=== PATIENT | female | born 1955 | race Caucasian/White ===

== ENCOUNTER → 2021-02-02 | Outpatient (CLI) | payer MEDICARE, BC, OTHER ==
[~2021-02-02] MED LIST: FLEXERIL 10 MG10 MG PO; MEDROL4 MG PO
== END ==
LOC: MAMO 02-24 11:00
DX: Z12.31 Encounter for screening mammogram for malignant neoplasm of breast (principal)
CPT/HCPCS: 77063; 77067

== ENCOUNTER 2021-03-19 19:53 | Emergency (ER) | payer MEDICARE, BC, OTHER ==
[2021-03-19 20:44] LABS: RED BLOOD COUNT 4.82 M/UL (4.00-5.10)
[2021-03-19 21:05] LABS: BUN/CREATININE RATIO 20 (0-10)
== END 2021-03-19 22:45 | disposition home or self-care (01) ==
LOC: ER1 19:53
PROVIDERS: Physician Assistant
DX: M25.562 Pain in left knee (principal); M79.652 Pain in left thigh; M79.89 Other specified soft tissue disorders; I10 Essential (primary) hypertension; E78.5 Hyperlipidemia, unspecified; Z79.899 Other long term (current) drug therapy; Z88.8 Allergy status to other drugs, medicaments and biological substances
CPT/HCPCS: 80053; 85025; 85379; 96372; 99283; J1100; J1885

== ENCOUNTER 2021-04-28 14:11 | Emergency (ER) | payer MEDICARE, BC, OTHER ==
[2021-04-28 15:14] LABS: HEMOGLOBIN 16.5 gm/dl (12.3-15.3); RED BLOOD COUNT 5.22 M/UL (4.00-5.10); WHITE BLOOD COUNT 7.6 K/UL (4.5-11.0)
[2021-04-28 15:47] LABS: BUN/CREATININE RATIO 23 (0-10)
== END 2021-04-28 18:08 | disposition home or self-care (01) ==
LOC: ER1 14:11
DX: S83.92XA Sprain of unspecified site of left knee, initial encounter (principal); I65.1 Occlusion and stenosis of basilar artery; E11.9 Type 2 diabetes mellitus without complications; I10 Essential (primary) hypertension; Z79.899 Other long term (current) drug therapy; Z88.1 Allergy status to other antibiotic agents; X50.1XXA Overexertion from prolonged static or awkward postures, initial encounter
CPT/HCPCS: 70450; 73564; 80053; 82550; 82553; 83874; 84484; 85025; 93971; 96372; 96374; 99284; J1100; J1885